=== PATIENT | female | born 1960 | race Caucasian/White ===

== ENCOUNTER 2016-07-10 09:49 | Emergency (ER) | payer OTHER, MEDICAID ==
[~2016-07-10] VITALS: Ht 165.1 cm; Wt 72.6 kg
[~2016-07-10 09:49] MED LIST: DAILY VITE PO; ESCITALOPRAM10 MG PO; LORATADINE10 M2 PO; NEURONTIN100 MG PO; OYSTER SHELL C PO; PROAIR HFA0.09 MG/Ac IH; VITAMIN D31000 I1 PO
[2016-07-10 10:14] VITALS: BP 137/87
--- NOTE | 2016-07-10 10:15 | NUR ---
PT AMBULATED TO BED 6
--- NOTE | 2016-07-10 10:20 | NUR ---
55/M TO ED WITH C/O LAC TO RIGHT ANKLE S/P FALL THIS MORNING. NO LOC. BLEEDING CONTROLLED. LUNGS CLEAR BILAT. HR EVEN AND REGULAR. AAOX4. VSS. NO SIGNS OF DISTRESS.
--- NOTE | 2016-07-10 10:20 | NUR ---
ERMD AT BEDSIDE FOR EVAL
[2016-07-10 11:06] VITALS: BP 137/87
--- NOTE | 2016-07-10 11:07 | NUR ---
Patient discharged with v/s stable. Written and verbal after care instructions given and explained. Patient verbalized understanding. Ambulatory with steady gait. All questions addressed prior to discharge. Advised to follow up with PMD.
== END 2016-07-10 11:07 | disposition home or self-care (01) ==
LOC: MED 09:49
DX: S91.011A Laceration without foreign body, right ankle, initial encounter (principal); Z79.899 Other long term (current) drug therapy; W22.8XXA Striking against or struck by other objects, initial encounter; Y93.89 Activity, other specified; Y92.89 Other specified places as the place of occurrence of the external cause; Y99.8 Other external cause status